=== PATIENT | male | born 1965 | race Caucasian/White ===

== ENCOUNTER → 2020-11-22 11:01 | Outpatient (CLI) | payer BC, SELFPAY ==
[2020-11-23 10:31] LABS: Basophils # 0.1 K/mm3 (0-0.2); Basophils % 0.9 % (0.1-2.0); Eosinophils # 0.2 K/mm3 (0.0-0.4); Eosinophils % 2.8 % (0.1-12.0); Hematocrit 46.7 % (42.0-52.0); Hemoglobin 15.3 g/dL (14.1-18.0); Lymphocytes # 2.3 K/mm3 (0.7-4.5); Lymphocytes % 29.9 % (10-50); Mean Corpuscular HGB Conc 32.8 g/dL (31.8-35.4); Mean Corpuscular Hemoglobin 29.7 pg (27.0-31.2); Mean Corpuscular Volume 90.6 fl (80-94); Mean Platelet Volume 8.7 fl (7.4-10.4); Monocytes # 0.6 K/mm3 (0.1-1.0); Monocytes % 7.2 % (1.7-9.3); Neutrophils # 4.6 K/mm3 (1.8-7.8); Neutrophils % 59.2 % (37.0-80.0); Platelet Count 188 K/mm3 (142-424); Red Blood Count 5.16 M/mm3 (4.60-6.20); White Blood Count 7.8 K/mm3 (4.8-10.8)
[2020-11-23 11:01] LABS: Alanine Aminotransferase 36 U/L (12-78); Albumin Level 4.7 g/dl (3.5-5.0); Albumin/Globulin Ratio 1.7 (1.1-1.8); Alkaline Phosphatase 74 U/L (38-126); Anion Gap 13.5 mEq/L (5-15); Aspartate Amino Transferase 38 U/L (17-59); Bilirubin,Total 1.7 mg/dl (0.2-1.3); Blood Urea Nitrogen 19 mg/dl (9-20); Calcium 9.7 mg/dl (8.4-10.2); Carbon Dioxide 28 mmol/L (22.0-30.0); Chloride 102 mmol/L (98-107); Chol/HDL Ratio 3.2 (1-3.5); Cholesterol 153 mg/dl (140-200); Estimated Glomerular Filt Rate 88 ml/min (>60); GFR (African American) 107 ML/MIN (>60); Globulin 2.8 g/dL (1.3-3.2); Glucose 109 mg/dl (74-100); HDL Cholesterol 48 mg/dl (40-60); Potassium 4.5 mmoL/L (3.5-5.1); Sodium 139 mmol/L (136-145); Total Protein,Serum 7.5 g/dl (6.3-8.2); Triglycerides 66 mg/dl (30-150); VLDL Cholesterol 13 mg/dL (0-40)
[2020-11-23 11:18] LABS: Direct LDL Cholesterol 85.87 mg/dL (100-129)
[2020-11-23 11:32] LABS: Prostate Specific Ag Screen 0.5 ng/ml (0.0-4.0)
== END ==
PROVIDERS: Visit Provider Internal Medicine Adolescent Medicine
DX: I69.398 Other sequelae of cerebral infarction (principal); N40.0 Benign prostatic hyperplasia without lower urinary tract symptoms
CPT/HCPCS: 80053; 80061; 85025; G0103

== ENCOUNTER 2025-05-10 16:38 | Outpatient (CLI) | payer BC, SELFPAY ==
--- OUTSIDE RECORDS SUMMARY | 2025-03-24 08:15 | XMS_ITS ---
Author Organization [facility] PE D COLBY Address [address] [place] [address] Care Team Providers Care Middleware Consultant Name Role Phone Nasir Bryan Primary Care Provider [phone] Torie Martell [phone] Allergies No Known Allergies REASON FOR VISIT cut left pointer finger Medications Medication SIG (Take, Route, Frequency, Duration) Notes Start Date End Date Status Atorvastatin Calcium 40 MG Take 1 tablet by mouth once daily; Duration: 90 Active Triamcinolone Acetonide 0.5 % 1 application Externally Twice a day; Duration: 10 days 03/09/2025 Active Lisinopril 20 MG Take 1 tablet by mouth once daily; Duration: 90 Active Ammonium Lactate 12 % 1 christa applied topically 2 times a day 09/03/2024 Active Xigduo XR 10-1000 MG 1 tab(s) orally once a day (in the morning); Duration: 90 days 12/24/2024 Active Carvedilol 25 MG 1 tab(s) orally 2 times a day; Duration: 90 days Active TEST STRIPS AND LANCETS NA FOR TWICE A DAY FSBS TESTING NA TWICE DAILY; Duration: 30 DAYS *Please review for potential replacement for e-prescription and drug interaction check* Active Aspirin 81 MG 1 tab(s) chewed once a day; Duration: 90 days Active GLUCOMETER NA USE FOR TWICE A DAY FSBS TESTING NA TWICE DAILY; Duration: 30 DAYS DX: E11.9 *Please review for potential replacement for e-prescription and drug interaction check* Active Melatonin 10 MG 2 tab(s) orally once (at bedtime) Active Cephalexin 500 MG 1 capsule Orally 3 times a day; Duration: 5 days 03/24/2025 Active Fish Oil 1000 MG 1 capsule Orally Three times a day Active Vitamin D (Cholecalciferol) 50 MCG (1999) 1 capsule Orally Once a day Active Vital Signs Temperature 98.8 degrees Fahrenheit 03/24/20 25 Blood pressure systolic 112 mm Hg 03/24/20 25 Blood pressure diastolic 88 mm Hg 025 Heart Rate 68 /min 03/24/2025 Height 6 ft 2 in in 03/24/2025 Weight 213.4 lbs 03/24/2025 BMI 27.4 kg/m2 03/24/2025 Encounters Encounter Location Date Provider Diagnosis [facility] [address] [address] 03/24/2025 Torie Martell Avulsion of finger, initial encounter S61.209A Assessments Encounter Date Diagnosis (ICD Code) Assessment Notes Treatment Notes Treatment Clinical Notes Section Notes 03/24/2025 Avulsion of finger, initial encounter (ICD-10 - S61.209A) Wound care reviewed, continue pressure dressing over the next 24 to 48 hours until bleeding stops completely. May cleanse with warm soapy water and dry completely. Start prophylactic antibiotics as noted. His tetanus vaccination is up-to-date. Strict return precautions reviewed Plan Of Treatment Medication Medication Name Sig Start Date Stop Date Notes Cephalexin 500 MG 1 capsule Orally 3 t imes a day; Duration: 5 days 03/24/2025 Next Appt Details Follow Up: prn, Reason: Progress Notes * Nick FRY CDOB: [birth year] (59 yo M)Acc No.[id number]:03/24/2025 Progress Notes Patient: Nick BETTS Jacob Provider: RADHA Littlejohn :1965 A ge:59 Y S ex:Male Date:03/24/2025 Address:[address] [place], [place] [id number] Pcp:Nasir Bryan Subjective: * Chief Complaints: * 1 . Cut left pointer finger. * HPI: g en: 59 yr old male presents today with c/o cut on his left index finger. accident was last night when cutting wood with a new miter saw. has continued to ooz some blood but minimal at this point. no LOC during incident. no fevers. * ROS: C ONSTITUTIONAL: no F ever. G ASTROENTEROLOGY: Reviewed, No Symptoms Reported: Y es. * Medical History: H ypertension, Colonoscopy 12/09 with two tubular adenoma polyps. 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 * Medications: T aking Vitamin D (Cholecalciferol) 50 MCG (1999) Capsule 1 capsule Orally Once a day , Taking Fish Oil 1000 MG Capsule 1 capsule Orally Three times a day , Taking Melatonin 10 MG Capsule 2 tab(s) orally once (at bedtime) , Taking Aspirin 81 MG Tablet Chewable 1 tab(s) chewed once a day , Taking GLUCOMETER NA PER INSURANCE COVERAGE USE FOR TWICE A DAY FSBS TESTING NA TWICE DAILY , Notes to Pharmacist: DX: E11.9 *Please review for potential replacement for e-prescription and drug interaction check*, Taking Carvedilol 25 MG Tablet 1 tab(s) orally 2 times a day , Taking TEST STRIPS AND LANCETS NA PER INSURANCE COVERAGE WITH GLUCOMETER FOR TWICE A DAY FSBS TESTING NA TWICE DAILY , Notes to Pharmacist: *Please review for potential replacement for e-prescription and drug interaction check*, Taking Ammonium Lactate 12 % Lotion 1 christa applied topically 2 times a day , Taking Xigduo XR 10-1000 MG Tablet Extended Release 24 Hour 1 tab(s) orally once a day (in the morning) , Taking Triamcinolone Acetonide 0.5 % Ointment 1 application Externally Twice a day , Taking Lisinopril 20 MG Tablet Take 1 tablet by mouth once daily , Taking Atorvastatin Calcium 40 MG Tablet Take 1 tablet by mouth once daily , Medication List reviewed and reconciled with the patient * Allergies: N .K.D.A. Objective: * Vitals: N urse: KJ, Pain: 8, Temp: 98.8, RR: 18, HR: 68, BP: 112/88, Ht: 6 ft 2 in, Wt: 213.4, BMI:27.4. * Examination: G eneral Examination: General P leasant and Cooperative, NAD on RA. left index finger with more of an avulsion type injury of the distal phalanx. scant bleeding. cleansed with NS and pressure dressing re-applied.. Assessment: * Assessment: 1. A vulsion of finger, initial encounter - (Primary) Plan: * Treatment: * Follow Up: p rn * * Sign off status: Completed true * Provider: RADHA Littlejohn Date: 03/24/2025 Generated for Niki galeano/Vinicius/Maliha on: 05/10/2025 04:40 PM EDT History and Physical Notes * Examination Category Sub-Category Detail Notes Category Not es General Examination General Pleasant and Cooperative, NAD on RA. left index finger with more of an avulsion type injury of the distal phalanx. scant bleeding. cleansed with NS and pressure dressing re-applied.
--- OUTSIDE RECORDS SUMMARY | 2025-04-27 05:15 | XMS_ITS ---
Author Organization [facility] PE D COLBY Address [address] [place] [address] Care Team Providers Care Captain/Check Airman Name Role Phone Nasir Bryan Primary Care Provider [phone] REASON FOR VISIT MED CK Encounters Encounter Location Date Provider Diagnosis [facility] [address] [address] 04/27/2025 Nasir Bryan Plan Of Treatment No Information Progress Notes * Nick FRY CDOB: [birth year] (59 yo M)Acc No.[id number]:04/27/2025 Progress Notes Patient: Carie SALTER Nick James Provider: Carie Bryan MD :1965 A ge:59 Y S ex:Male Date:04/27/2025 Address:[id number] Subjective: * Chief Complaints: * 1 . MED CK. * Medical History: Objective: * Vitals: Assessment: Plan: * Treatment: * * Electronic signature of Shaggy Bryan MD FAAP on 05/10/2025 at 04:40 PM EDT Sign off status: Pending * Provider: Carie Bryan MD Date: 04/27/2025 Generated for Printi ng/Faxing/eTransmitting on: 05/10/2025 04:40 PM EDT
--- NOTE | 2025-05-10 | XR_ITS ---
PROCEDURE INFORMATION: Exam: XR Chest Exam date and time: 05/10/2025 4:46 PM Age: 59 years old Clinical indication: Injury or trauma; Blunt trauma (contusions or hematomas); Injury details: Fall pain to R lateral ribs; Prior surgery; Surgery date: 6+ months; Surgery type: 2019 implant in chest for stroke/pfo TECHNIQUE: Imaging protocol: Radiologic exam of the chest. Views: 2 views. COMPARISON: CR XR RIBS RT 2V 05/10/2025 4:46 PM FINDINGS: Lungs: Unremarkable. No consolidation. Pleural spaces: Unremarkable. No pleural effusion. No pneumothorax. Heart/Mediastinum: Unremarkable. No cardiomegaly. Bones/joints: Unremarkable. IMPRESSION: No acute findings.
--- NOTE | 2025-05-10 | XR_ITS ---
PROCEDURE INFORMATION: Exam: XR Right Ribs Exam date and time: 05/10/2025 4:46 PM Age: 59 years old Clinical indication: Injury or trauma; Rib area; Blunt trauma (contusions or hematomas); Injury details: Fall pain to R lateral rib TECHNIQUE: Imaging protocol: Radiologic exam of the right ribs. Views: 2 views. COMPARISON: CR XR CHEST 2V 05/10/2025 4:46 PM FINDINGS: Bones/joints: Normal. Soft tissues: Normal. IMPRESSION: No acute findings.
--- OUTSIDE RECORDS SUMMARY | 2025-05-10 16:40 | XMS_ITS | Patient Health Record ---
Author Organization [facility] D COLBY Address [address] [place] [address] Care Team Providers Care Pelletizer Operator Name Role Phone Nasir Bryan Primary Care Provider Torie Martell Unavailable [phone] Migration, Provider Unavailable Unavailable Allergies No Known Allergies Results Component Value Reference Range Notes VITAMIN B6 Reviewed date:11/27/2024 03:01:06 PM Interpretation: Performing Lab: Notes/Report: Specimen Comment: Test(s) 300799-Hthyzhl B6 Specimen Comment: was developed and its performance charCNS Response Specimen Comment: determined by [facility]. It has not been maxwell ared or approved Specimen Comment: by the Food and Drug Administration. Deficiency: <3.4 Marginal: 3.4 - 5.1 Adequate: >5.1 Performed at: [facility] [id number] [place] Lab[place]: Ambika Thornton MD, Phone: [phone] VITAMIN B6 38.2 3.4-65.2 ug/L Specimen Comment: Test(s) 239765-Orvcpzs B6 Specimen Comment: was developed and its performance charCNS Response Specimen Comment: determined by [facility]. It has not been maxwell ared or approved Specimen Comment: by the Food and Drug Administration. Deficiency: <3.4 Marginal: 3.4 - 5.1 Adequate: >5.1 Performed at: [facility] [id number] [place] Lab[place]: Ambika Thornton MD, Phone: [phone] SENT TO REFERENCE LAB Note Unless otherwise noted testing performed at: [address] [address] Ravi Sosa MD CLIA: [id number] TESTOSTERONE TOTAL Reviewed date:11/23/2024 09:31:27 AM Interpretation: Performing Lab: Notes/Report: TESTOSTERONE, SERUM 348 264-916 ng/dL Adult male reference interval is based on a population of healthy nonobese males (BMI <30) between 19 and 39 years old. brooke Donald.al. JCEM 2017,102;7392-0989. PMID: [id number]. Performed at: [facility] [id number] [place] Lab[place]: Judd Jesus PhD, Phone: [phone] Note Unless otherwise noted testing performed at: [address] [address] Ravi Sosa MD CLIA: [id number] CBC AUTO W DIFF Reviewed date:11/23/2024 09:31:27 AM Interpretation: Performing Lab: Notes/Report: WBC 6.2 4.5-11.5 10 RBC 5.47 4.25-5.57 10 HGB 16.2 13.5-17.2 g/dL HCT 47.7 42.0-52.0 % MCV 87.2 80-95 fl MCH 29.6 27.0-34.0 pg MCHC 34.0 32.0-36.0 g/dL PLATELET COUNT 187 150-450 10 RDW 13.1 12.3-15.1 % MPV 9.2 7.4-10.4 fl GRANULOCYTE% 64.2 40-75 % LYMPHOCYTE% 24.2 15-57 % MONOCYTE% 8.1 4.0-12.0 % EOSINOPHIL% 2.8 0.0-4.0 % BASOPHIL% 0.5 0.0-1.0 % IMMATURE GRANULOCYTES % 0.2 0.0-0.8 % GRANULOCYTE# 3.96 LYMPHOCYTE# 1.49 MONOCYTE# 0.50 EOSINOPHIL# 0.17 BASOPHIL# 0.03 IMMATURE GRANULOCYTES # 0.01 MANUAL DIFFERENTIAL NO Note Unless otherwise noted testing performed at: [address] [address] Ravi Sosa MD CLIA: [id number] VITAMIN D TOTAL (D2+D3) Reviewed date:11/23/2024 09:31:27 AM Interpretation: Performing Lab: Notes/Report: VITAMIN D25 (D2+D3) 28.6 30-100 ng/mL Note Unless otherwise noted testing performed at: [address] [address] Ravi Sosa MD CLIA: [id number] MAGNESIUM Reviewed date:11/23/2024 09:31:27 AM Interpretation: Performing Lab: Notes/Report: MAGNESIUM 2.0 1.8-2.4 mg/dL Note Unless otherwise noted testing performed at: [address] [address] Ravi Sosa MD CLIA: [id number] LIPID PANEL Reviewed date:11/23/2024 09:31:27 AM Interpretation: Performing Lab: Notes/Report: FASTING ?: YES TRIGLYCERIDE 109 20-200 mg/dL The National Cholesterol Education Program (NCEP) has set the following guidelines for Fasting Triglycerides: NORMAL: <150 mg/dL BORDERLINE HIGH: 150 - 199 mg/dL HIGH: 200 - 499 mg/dL VERY HIGH: > or =500 mg/dL CHOLESTEROL 137 0-200 mg/dL The National Cholesterol Education Program (NCEP) has set the following guidelines for Fasting Cholesterol: DESIRABLE: <200 mg/dL BORDERLINE HIGH: 200 - 239 mg/dL HIGH: > or =240 mg/dL HDL CHOLESTEROL 43 60- mg/dL The National Cholesterol Education Program (NCEP) has set the following guidelines for Fasting HDL Cholesterol: LOW HDL: <40 mg/dL NORMAL: 40 - 60 mg/dL DESIRABLE: >60 mg/dL LDL CALCULATED 72 100- mg/dL The National Cholesterol Education Program (NCEP) has set the following guidelines for Fasting LDL Cholesterol: OPTIMAL: < 100 mg/dL LOW RISK: 100 - 129 mg/dL BORDERLINE HIGH: 130 - 159 mg/dL HIGH: 160 - 189 mg/dL VERY HIGH: > or = 190 mg/dL CHOL/HDL RATIO 3 -5 Note Unless otherwise noted testing performed at: [address] [address] Ravi Sosa MD CLIA: [id number] HEMOGLOBIN A1C Reviewed date:11/23/2024 09:31:27 AM Interpretation: Performing Lab: Notes/Report: GLYCOSYLATED HEMOGLOBIN A1C 5.8 4.5-6.2 % ESTIMATED AVERAGE GLUCOSE 120 82-131 mg/dl Note Unless otherwise noted testing performed at: [address] [address] Ravi Sosa MD CLIA: [id number] CBC (INCLUDES DIFF/PLT) (639 9) Reviewed date:02/24/2025 02:37:12 PM Interpretation: Performing Lab:CB, [facility] [address] [facility] HealthSmibEQ[address] Ferny Angelo Notes/Report: NON-FASTING; NON-FASTING; NON-FASTING; NON-FASTING; NON-FAST WHITE BLOOD CELL COUNT 5.9 3.8-10.8 Thousand/ uL RED BLOOD CELL COUNT 5.20 4.20-5.80 Million/uL HEMOGLOBIN 16.0 13.2-17.1 g/dL HEMATOCRIT 48.8 38.5-50.0 % MCV 93.8 80.0-100.0 fL MCH 30.8 27.0-33.0 pg MCHC 32.8 32.0-36.0 g/dL For adults, a slight decrease in the calculated MCHC value (in the range of 30 to 32 g/dL) is most likely not clinically significant; however, it should be interpreted with caution in correlation with other red cell parameters and the patient's clinical condition. RDW 13.0 11.0-15.0 % PLATELET COUNT 191 140-400 Thousand/uL MPV 9.1 7.5-12.5 fL ABSOLUTE NEUTROPHILS 3605 2525-1530 cells/uL ABSOLUTE LYMPHOCYTES 0106 605-2038 cells/uL ABSOLUTE MONOCYTES 502 200-950 cells/uL ABSOLUTE EOSINOPHILS 201 15-500 cells/uL ABSOLUTE BASOPHILS 47 0-200 cells/uL NEUTROPHILS 61.1 LYMPHOCYTES 26.2 MONOCYTES 8.5 EOSINOPHILS 3.4 BASOPHILS 0.8 COMPREHENSIVE METABOLIC PANE L (95391) Reviewed date:02/24/2025 02:37:12 PM Interpretation: Performing Lab:CB, [facility] Nscx[address] [facility] [place] AlbertOkxiFC[address] Ferny Angelo Notes/Report: NON-FASTING; NON-FASTING; NON-FASTING; NON-FASTING; NON-FAST GLUCOSE 114 65-99 mg/dL Fasting reference interval For someone without known diabetes, a glucose value between 100 and 125 mg/dL is consistent with prediabetes and should be confirmed with a follow-up test. UREA NITROGEN (BUN) 22 7-25 mg/dL CREATININE 0.89 0.70-1.30 mg/dL EGFR 100 > OR = 60 mL/min/1.73m2 BUN/CREATININE RATIO SEE NOTE: 6-22 (calc) Not Reported: BUN and Creatinine are within reference range. SODIUM 140 135-146 mmol/L POTASSIUM 4.8 3.5-5.3 mmol/L CHLORIDE 103 98-110 mmol/L CARBON DIOXIDE 26 20-32 mmol/L CALCIUM 9.6 8.6-10.3 mg/dL PROTEIN, TOTAL 7.2 6.1-8.1 g/dL ALBUMIN 4.8 3.6-5.1 g/dL GLOBULIN 2.4 1.9-3.7 g/dL (calc) ALBUMIN/GLOBULIN RATIO 2.0 1.0-2.5 (calc) BILIRUBIN, TOTAL 1.6 0.2-1.2 mg/dL ALKALINE PHOSPHATASE 70 35-144 U/L AST 28 10-35 U/L ALT 26 9-46 U/L PROLACTIN Reviewed date:11/23/2024 09:31:27 AM Interpretation: Performing Lab: Notes/Report: PROLACTIN 6.5 3.6-25.2 ng/mL Performed at: - [facility] [address] [id number] [place] Lab[place]: Judd Jesus PhD, Phone: [phone] SENT TO REFERENCE LAB Note Unless otherwise noted testing performed at: [address] [address] Ravi Sosa MD CLIA: [id number] CORTISOL TOTAL Reviewed date:11/23/2024 09:31:26 AM Interpretation: Performing Lab: Notes/Report: CORTISOL 19.7 6.2-19.4 ug/dL Please Note: The reference interval and flagging for this test is for an AM collection. If this is a PM collection please use: Cortisol PM: 2.3-11.9 Performed at: [facility] [id number] [place] Lab[place]: Judd Jesus PhD, Phone: [phone] SENT TO REFERENCE LAB Note Unless otherwise noted testing performed at: [address] [address] Ravi Sosa MD CLIA: [id number] VITAMIN B12 & FOLATE Reviewed date:11/23/2024 09:31:27 AM Interpretation: Performing Lab: Notes/Report: VITAMIN B12 484 193-986 pg/mL FOLATE (FOLIC ACID), SERUM 9.0 8.6-58.9 ng/mL Note Unless otherwise noted testing performed at: [address] [address] Ravi Sosa MD CLIA: [id number] COMP METABOLIC PANEL Reviewed date:11/23/2024 09:31:27 AM Interpretation: Performing Lab: Notes/Report: SODIUM 139 136-145 mmol/L POTASSIUM 4.5 3.5-5.1 mmol/L CHLORIDE 103 98-107 mmol/L CARBON DIOXIDE 29 21-32 mmol/L ANION GAP 7.0 GLUCOSE 154 70-110 mg/dL BLOOD UREA NITROGEN 26 7-18 mg/dL CREATININE 1.2 0.8-1.3 mg/dL BUN/CREATININE RATIO 21.7 9-21 ESTIMATED GLOM FILTRATION RATE 71 >60- mL/min GFR LIMITATION: The eGFR equation CKD-EPI 2020 is not applicable for pediatric patients or greater than 90 years of age. The following conditions may alter the GFR result: extremes in body size, malnutrition or obesity, skeletal muscle disease, paraplegia or quadriplegia, vegetarian diet or rapidly changing kiney function. TOTAL PROTEIN 7.5 6.4-8.2 g/dL ALBUMIN 4.2 3.4-5.0 g/dL CALCIUM 9.1 8.5-10.1 mg/dL CORRECTED CALCIUM 8.9 8.5-10.1 mg/dL BILIRUBIN TOTAL 1.5 0.4-1.5 mg/dL AST (SGOT) 26 15-37 U/L ALT (SGPT) 40 12-78 U/L ALK PHOSPHATASE 77 50-170 U/L Note Unless otherwise noted testing performed at: [place] [address] Ravi Sosa MD CLIA: [id number] HEMOGLOBIN A1c (496) Reviewed date:02/24/2025 02:37:12 PM Interpretation: Performing Lab:[facility] [address], [employer] DevelopmentRqvoAX[address] Ferny Angelo Notes/Report: NON-FASTING; NON-FASTING; NON-FASTING; NON-FASTING; NON-FAST HEMOGLOBIN A1c 6.0 <5.7 % For someone without known diabetes, a hemoglobin A1c value between 5.7% and 6.4% is consistent with prediabetes and should be confirmed with a follow-up test. For someone with known diabetes, a value <7% indicates that their diabetes is well controlled. A1c targets should be individualized based on duration of diabetes, age, comorbid conditions, and other considerations. This assay result is consistent with an increased risk of diabetes. Currently, no consensus exists regarding use of hemoglobin A1c for diagnosis of diabetes for children. PROTHROMBIN TIME-INR (8847) Reviewed date:02/24/2025 02:37:12 PM Interpretation: Performing Lab:[facility] [address] Jennifer, [employer] [id number] Ferny Angelo Notes/Report: NON-FASTING; NON-FASTING; NON-FASTING; NON-FASTING; NON-FAST INR 1.0 Reference Range 0.9-1.1 Moderate-intensity Warfarin Therapy 2.0-3.0 Higher-intensity Warfarin Therapy 3.0-4.0 PT 11.4 9.0-11.5 sec For additional information, please refer to http://education.41st Parameter/faq/HMU754 (This link is being provided for informational/ educational purposes only.) PHOSPHATE ( PHOSPHORUS) (7 18) Reviewed date:02/24/2025 02:37:12 PM Interpretation: Performing Lab:[facility] [address] [facility], PolisofiaRqcySA[address] Ferny Angelo Notes/Report: NON-FASTING; NON-FASTING; NON-FASTING; NON-FASTING; NON-FAST PHOSPHATE ( PHOSPHORUS) 4.3 2.5-4.5 mg/dL MAGNESIUM (622) Reviewed date:02/24/2025 02:37:12 PM Interpretation: Performing Lab:CB, [facility] [address], [place] AlbertXidqEK[address] Ferny Angelo Notes/Report: NON-FASTING; NON-FASTING; NON-FASTING; NON-FASTING; NON-FAST MAGNESIUM 2.3 1.5-2.5 mg/dL Medications Medication SIG (Take, Route, Frequency, Duration) Notes Start Date End Date Status Melatonin 10 MG 2 tab(s) orally once (at bedtime) Active Fish Oil 1000 MG 1 capsule Orally Three times a day Active GLUCOMETER NA USE FOR TWICE A DAY FSBS TESTING NA TWICE DAILY; Duration: 30 DAYS DX: E11.9 *Please review for potential replacement for e-prescription and drug interaction check* Active Aspirin 81 MG 1 tab(s) chewed once a day; Duration: 90 days Active Triamcinolone Acetonide 0.5 % 1 application Externally Twice a day; Duration: 10 days 03/09/2025 Active Xigduo XR 10-1000 MG 1 tab(s) orally once a day (in the morning); Duration: 90 days 12/24/2024 Active Vitamin D (Cholecalciferol) 50 MCG (2000 UT) 1 capsule Orally Once a day Active Atorvastatin Calcium 40 MG Take 1 tablet by mouth once daily; Duration: 90 Active Celecoxib 200 MG 1 capsule as needed Orally twice a day; Duration: 30 days 05/10/2025 Active Lisinopril 20 MG Take 1 tablet by mouth once daily; Duration: 90 Active Carvedilol 25 MG 1 tab(s) orally 2 times a day; Duration: 90 days Active Ammonium Lactate 12 % 1 christa applied topically 2 times a day 09/03/2024 Active TEST STRIPS AND LANCETS NA FOR TWICE A DAY FSBS TESTING NA TWICE DAILY; Duration: 30 DAYS *Please review for potential replacement for e-prescription and drug interaction check* Active Immunizations Vaccine Route Administration Date Status Comme nts Boostrix IM Intramuscular 11/22/2020 Administered Flublok IM Intramuscular 06/07/2020 Administered Flublok IM Intramuscular 06/18/2024 Administered FLUZONE 6MO - OLDER IM Intramuscular 08/13/2019 Administer ed FLUZONE 6MO - OLDER IM Intramuscular 08/06/2023 Administer ed Pneumovax 23 IM Intramuscular 05/05/2019 Administered Social History Tobacco Use: Social History Observation Description Date Details (start date - stop date) Never Smoker NA - NA Smoking: Question Answer Notes Are you a: nonsmoker Section Notes: hx chewing tobacco hx chewing tobacco hx chewing tobacco hx chewing tobacco hx chewing tobacco hx chewing tobacco hx chewing tobacco hx chewing tobacco hx chewing tobacco hx chewing tobacco hx chewing tobacco hx chewing tobacco hx chewing tobacco hx chewing tobacco hx chewing tobacco hx chewing tobacco hx chewing tobacco hx chewing tobacco hx chewing tobacco hx chewing tobacco hx chewing tobacco hx chewing tobacco hx chewing tobacco Problems Problem Type SNOMED Code ICD Code Onset Dates Problem Status W/U Status Risk Notes Problem Type 2 diabetes mellitus with other specified complication (E11.69) Active confirmed Problem Insomnia (199642289) Other insomnia (G47.09) Active confirmed Problem Chronic pain (28138965) Other chronic pain (G89.29) Active confirmed Problem Sequelae of cerebral infarction (734316196) Other sequelae of cerebral infarction (I69.398) Active confirmed Problem Dysuria (88677806) Dysuria (R30.0) Active confi rmed Problem Seizure disorder (366346492) Seizure disorder (G40.909) Active confirmed Problem Anxiety (41648625) Anxiety (F41.9) Active confi rmed Problem Androgen deficiency (03487788) Androgen deficiency (E29.1) Active confirmed Problem Obesity (719199439) Obesity, unspecified (E66.9) Active confirmed Problem Palpitations (19884337) Palpitation (R00.2) Active confirmed Problem Erectile dysfunction (disorder) (948901503) Erectile dysfunction, unspecified erectile dysfunction type (N52.9) Active confirmed Problem Migraine with aura (8424288) Migraine with aura and without status migrainosus, not intractable (G43.109) Active confirmed Problem Patent foramen ovale (230308185) Patent foramen ovale (Q21.1) Active confirmed Problem Essential hypertension (44344779) Essential hypertension with goal blood pressure less than 140\/90 (I10) Active confirmed Problem Type II diabetes mellitus without complication (720536497) Type 2 diabetes mellitus without complication, without long-term current use of insulin (E11.9) Active confirmed Problem Benign prostatic hypertrophy without outflow obstruction (588474696) Benign prostatic hyperplasia without lower urinary tract symptoms (N40.0) Active confirmed Problem Lower urinary tract symptoms due to benign prostatic hypertrophy (82711079166675) Benign prostatic hyperplasia with lower urinary tract symptoms (N40.1) Active confirmed Problem Seasonal allergic rhinitis (817119947) Acute seasonal allergic rhinitis (J30.2) Active confirmed Problem Peyronie's disease (4223435) Peyronie's disease (N48.6) Active confirmed Problem Type II diabetes mellitus without complication (297435701) New onset type 2 diabetes mellitus (E11.9) Active confirmed Problem 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, 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) Active confirmed Vital Signs Heart Rate 72 /min 05/10/2025 Temperature 98.0 degrees Fahrenheit 05/10/2025 Blood pressure diastolic 94 mm Hg 05/10/2025 Height 6 ft 2 in in 05/10/2025 Blood pressure systolic 138 mm Hg 05/10/2025 Weight 218 lbs 05/10/2025 BMI 27.99 kg/m2 05/10/2025 Encounters Encounter Location Date Provider Diagnosis [facility] [address] [facility] [address] [place] [address] 12/26/2024 Provider Migration Type 2 diabetes mellitus with other specified complication E11.69 [facility] [address] [facility] [address] [place] [address] 05/10/2025 Nasir Bryan Accidental fall, initial encounter W19.XXXA and Chest wall pain R07.89 [facility] [place] [address] [address] 06/18/2024 Nasir Bryan Eczema craquele L30. 8 and Immunization(s) administered Z23 [facility] [place] [address] [address] 11/19/2024 Nasir Bryan Type 2 diabetes mellitus without complication, without long-term current use of insulin E11.9 ; Other malaise R53.81 ; Other fatigue R53.83 ; Androgen deficiency E29.1 and Routine medical exam Z00.00 [facility] [place] [address] [address] 12/24/2024 Nasir Bryan Type 2 diabetes mellitus with other specified complication E11.69 ; Obesity, unspecified E66.9 ; New onset type 2 diabetes mellitus E11.9 ; Cognitive impairment R41.89 and Family history of presenile dementia Z81.8 [facility] [place] [address] [address] 02/23/2025 Nasir Bryan Type 2 diabetes mellitus without complication, without long-term current use of insulin E11.9 ; Other malaise R53.81 ; Other fatigue R53.83 and Ecchymosis R58 [facility] [place] [address] [address] 03/24/2025 Torie Martell Avulsion of finger, initial encounter S61.209A [facility] [address] [place] [address] 06/29/2024 Nasir Besson [facility] [address] [address] 08/10/2024 Nasir Besson [facility] [address] [address] 09/03/2024 Nasir Besson [facility] [address] [address] 09/03/2024 Nasir Besson [facility] [address] [address] 03/09/2025 Nasir Bryan Eczema craquele L30. 8 Assessments Encounter Date Diagnosis (ICD Code) Assessment Notes Treatment Notes Treatment Clinical Notes Section Notes 06/18/2024 Eczema craquele (ICD-10 - L30.8) - presents with rash on DIP joints of bilateral hands, cracking skin, some bleeding - at this time suspect eczema, no signs/symptoms of infection, no joint pain/stiffness. 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 Will check multiple labs given his long history of diabetes. Given his history of seizure disorder we will also check some hormonal labs such as prolactin and cortisol to make sure we have not got any neuroendocrine axis problems. Please note I will review all labs personally get back with the patient 11/19/2024 Type 2 diabetes mellitus without complication, without long-term current use of insulin (ICD-10 - E11.9) Patient's concern is why when he eats more sensibly his glucose is higher the next day and lower when he has some more carbs. We discussed nocturnal glucose metabolism and the possibility of Somogyi phenomenon and that his body was still producing insulin and glucagon and this would need to be taken into account. Will do fasting labs today and an A1c and we will regroup and see if we can smooth out his glucose levels 12/24/2024 Type 2 diabetes mellitus with other specified complication (ICD-10 - E11.69) I think benefit would benefit from SGLT2 inhibitor. Will combine this with his metformin to reduce pill burden. Discussed a host of nutritional issues. 12/24/2024 Obesity, unspecified (ICD-10 - E66.9) Discussed using fish oil for joint pains. Discussed stopping several of his medications including his seizure medication. He had 1 isolated seizure. Discussed option fluoxetine. He seems emotionally well-balanced since improving from his stroke and seizure issues. 12/26/2024 Type 2 diabetes mellitus with other specified complication (ICD-10 - E11.69) 02/23/2025 Other malaise (ICD-10 - R53.81) -Has had some subjective weaknes and difficluty w/moving heavy things at work and had mutliple med chnages rececntly- will check CMP, Mg, and Phos 02/23/2025 Type 2 diabetes mellitus without complication, without long-term current use of insulin (ICD-10 - E11.9) -BG well controlled on Xigduo on home reads, due for repeat A1c -Some subjective weakness and possible easy bleeding and bruising since starting med, checking clotting function and encouraging increased fluid intake. -RTC 2-3 months for med check and to observe ongoing symptoms. 03/09/2025 Eczema craquele (ICD-10 - L30.8) 03/24/2025 Avulsion of finger, initial encounter (ICD-10 - S61.209A) Wound care reviewed, continue pressure dressing over the next 24 to 48 hours until bleeding stops completely. May cleanse with warm soapy water and dry completely. Start prophylactic antibiotics as noted. His tetanus vaccination is up-to-date. Strict return precautions reviewed 05/10/2025 Chest wall pain (ICD-10 - R07.89) Imaging studies given his fall and persistent pain. I will review personally. 05/10/2025 Accidental fall, initial encounter (ICD-10 - W19.XXXA) 02/23/2025 Other fatigue (ICD-10 - R53.83) 12/24/2024 New onset type 2 diabetes mellitus (ICD-10 - E11.9) 11/19/2024 Other fatigue (ICD-10 - R53.83) 06/18/2024 Immunization(s) administered (ICD-10 - Z23) - flu shot administered today 12/24/2024 Cognitive impairment (ICD-10 - R41.89) Will stop antiseizure medication, will stop fluoxetine. If weight loss occurs with SGLT2 and his blood pressure remains excellent we will consider weaning off beta-windy. 02/23/2025 Ecchymosis (ICD-10 - R58) 11/19/2024 Androgen deficiency (ICD-10 - E29.1) 12/24/2024 Family history of presenile dementia (ICD-10 - Z81.8) Patient is very concerned about memory loss. Had a long discussion about memory treatment options. His mother in her early 60s of presenile dementia. We will involve neurology and make a referral for memory evaluation 11/19/2024 Routine medical exam (ICD-10 - Z00.00) Patient is up-to-date with colonoscopy. Non-smoker. Has not used alcohol for many years. Supportive home life. Depression screening negative. No cognitive impairment noted. Plan Of Treatment Pending Test Test Name Order Date N-CBC 09/09/2006 MRI : Lumbosacral Spine 01/23/2010 CT Scan : Abdomen, with contrast 006 N-TSH (Thyroid Stimulating Hormone) 08/23 Rapid Strep 12/24/2006 N-CMP 09/09/2006 Cardiac GXT 09/30/2013 EKG : In House 02/03/2007 X ray : Rib Series 05/10/2025 N-Testosterone, Free 12/24/2012 H-CBC with AUTO DIFF 02/16/2015 H-VITAMIN B12 02/16/2015 H-CMP 02/16/2015 H-LIPID PANEL 02/16/2015 H-TSH 02/16/2015 H-VIT D, 25-HYDROXY 02/16/2015 C-TESTOSTERONE 06/07/2020 X ray : Chest PA and Lateral 05/10/2025 BASIC METABOLIC PANEL (48910) 12/07/2022 HEMOGLOBIN A1c (496) 12/07/2022 FECAL LEUKOCYTE STAIN (3930) 11/25/2023 Future Test Test Name Order Date COMPREHENSIVE METABOLIC PANEL (58698) HEMOGLOBIN A1c (496) 03/04/2023 Insurance Providers Payer Name Payer Address Payer Phone Subscriber Number Group Number Insured Name Patient Relationship to Insured Coverage Start Date Coverage End Date [facility] [address] [place] [address] [id number] Nick Evans Self - patient is the insured Medications Administered Medication Instructions Date of Administration Dosage Notes Kenalog 40mg 01/17/2017 40 mg Kenalog 40mg 09/06/2017 40 mg Triamcinolone Acetonide 40mg Injection 02/28/2018 1 mL Triamcinolone Acetonide 40mg Injection 08/13/2019 1 mL Triamcinolone Acetonide 40mg Injection 10/27/2019 1 mL Kenalog 10/25/2016 1 mL Medical (General) History Medical History History ICD Code hypertension Colonoscopy 12/09 with two tu bular adenoma polyps. 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
--- OUTSIDE RECORDS SUMMARY | 2025-05-10 16:40 | XMS_ITS | Clinical Summary ---
Author Organization [facility] Address [address] [place] [address] Care Team Providers Care Demand Planning Manager Name Role Phone Nasir Bryan MD Primary Care Provider + [phone] Monse Marinelli MD Unavailable [phone] Allergies No known active allergies Medications lisinopril 20 MG tablet Take 1 tablet (20 mg) by mouth 1 (one) time each day. 09/18/2019 Active carvedilol (Coreg) 25 MG tablet Take 1 tablet (25 mg) by mouth 2 (two) times a day. 09/18/2019 Active busPIRone (Buspar) 10 MG tablet Take 1 tablet (10 mg) by mouth 1 (one) time each day. 02/16/2020 Active atorvastatin (Lipitor) 40 MG tablet Take 1 tablet (40 mg) by mouth 1 (one) time each day. 09/18/2019 Active aspirin 81 MG chewable tablet Chew 1 tablet (81 mg) 1 (one) time each day. 12/15/2019 Active lacosamide (Vimpat) 100 MG tablet Take 1 tablet (100 mg) by mouth 1 (one) time each day. 06/19/2020 Active metFORMIN (Glucophage) 500 MG tablet Take 1 tablet (500 mg) by mouth 2 (two) times a day. 09/02/2023 Active Active Problems Problem Noted Date Diagnosed Date Mild neurocognitive disorder 05/17/2023 Status post percutaneous patent foramen ovale cl osure 10/10/2021 Overview (10/10/2021): 18 mm Amplatzer Septal Occluder placed on 09/05/[address] Vazquez. S/P atrial septal defect closure 09/05/2021 Cryptogenic stroke 08/10/2021 Overview (08/10/2021): Added automatically from request for surgery [id number] PFO (patent foramen ovale) 08/01/2021 Seizure 02/18/2020 Right hemiparesis 07/16/2019 Overweight 07/16/2019 History of stroke 07/16/2019 Expressive aphasia 07/16/2019 Essential hypertension 07/16/2019 Status post placement of implantable loop record er 07/08/2019 Overview (10/10/2021): [employer] Family History Medical History Relation Name Comments Anxiety disorder Brother 1 Diabetes Brother 2 Conversions - Other Father deafness or hearing loss Dementia Mother Nick Relation Name Status Comments Brother 1 Brother 2 Father Mother Nick Social History Tobacco Use Types Packs/Day Years Used Date Smoking Tobacco: Never Smokeless Tobacco: Former Snuff Tobacco Cessation:Counseling Given: Not Answered Alcohol Use Standard Drinks/Week Comments Not Currently 0 (1 standard drink = 0.6 oz pur e alcohol) Sex and Gender Information Value Date Recorded Sex Assigned at Male 07/03/2021 5:48 AM EDT Legal Sex Male 7:19 PM EDT Gender Identity Male 07/03/2021 5:48 AM EDT Sexual Orientation Straight 07/03/2021 5: 48 AM EDT Last Filed Vital Signs Vital Sign Reading Time Taken Comments Blood Pressure 130/90 04/07/2024 10:25 AM EDT Pulse 50 04/07/2024 10:25 AM EDT Temperature 36.7 C (98 F) 09/06/2021 7:45 AM EST Respiratory Rate 18 09/17/2023 9:06 AM EST Oxygen Saturation 98% 04/07/2024 10:25 AM EDT Inhaled Oxygen Concentration - - Weight 106 kg (233 lb) 04/07/2024 10:25 AM EDT Height 185.4 cm (6' 1 ) 04/07/2024 10:25 AM EDT Body Mass Index 30.74 04/07/2024 10:25 AM EDT Plan of Treatment Upcoming Encounters Date Type Department Care Team (Late st Contact Info) Description 07/06/2025 10:30 AM EDT Office Visit [place] [facility] [address] [place] [address] Monse Marinelli MD [address] [place] [address] Health Maintenance Due Date Last Done Comments [facility]-Depression Screening 1967 [facility]-HIV Screening 1967 [facility]-Infant/Child/Adol SDOH Screenings 1967 [facility]- SDOH Screenings 1985 [facility]-Adult SDOH Screenings 1985 [facility]-Hepatitis B Vaccines (1 of 3 - 19+ 3-dose series) 1986 CT Colonography 2012 Colonoscopy 2012 FIT-DNA 2012 FIT 2012 FOBT 2012 Sigmoidoscopy 2012 [facility]-Colorectal Cancer Screening 2012 [facility]-Zoster Vaccines (1 of 2) 2017 [facility]-Pneumococcal Vaccine: 50+ Years (2 of 2 - PCV) 05/05/2020 05/05/2019 [id number] Vaccine (2 - season) 2024 08/01/2021 [facility]-Influenza Vaccine (#1) 05/24/202506/18, 08/06/2023, 06/07/2020, Additional history exists [facility]-DTaP,Tdap,and Td Vaccines (2 - Td or Tdap) 11/22/2030 11/22/2020 [facility]-Hepatitis C Screening Completed 02/03/2020 [facility]-Obesity Intervention Completed 024, 09/17/2023, 10/11/2022 HPV Vaccines Aged Out No longer eligi ble based on patient's age to complete this topic [facility]-HIB Vaccines Aged Out No longer e ligible based on patient's age to complete this topic [facility]-Hepatitis A Vaccines Aged Out No longer eligible based on patient's age to complete this topic [facility]-IPV Vaccines Aged Out No longer e ligible based on patient's age to complete this topic [facility]-Rotavirus Vaccines Aged Out No lo nger eligible based on patient's age to complete this topic Medical Devices Implanted Type Area Distributor Advertising Material Device Identifier Shelf Expiration Date Model / Serial / Lot Occluder Cribiform 18mm - [id number] Implanted:Qty: 1 on 09/05/2021 by Blaze Vazquez MD at [id number] 04/22/2025 [id number] Procedures Procedure Name Priority Date/Time Associated Diagnosis Comments HEPATITIS C ANTIBODY - ED W/REFLEX TO HCV QUANT PCR Routine 02/03/2020 9:43 PM EDT from Last 3 Months or Most Recently Relevant to Health Maintenance Results * [place] Hepatitis C Antibody (02/03/2020 9:43 PM EDT) [place] Hepatitis C Ab NEGATIVE Reference Range: Negative SUNQUEST 02/03/2020 9:43 PM EDT 02/03/2020 9:58 PM EDT Hyun Alaniz MD LAB BLOOD ORDERABLES Rosenda terry Result SUNQUEST from Last 3 Months or Most Recently Relevant to Health Maintenance Insurance [employer] Advance Directives * Full Code (Latest Code Status on File) Date Activated Date Inactivated Comments 09/05/2021 7:11 PM 09/06/2021 5:01 PM Question Answer Comments Patient has decision-making capacity? Yes Care Teams Demand Planning Manager Relationship Specialty Start Date End Date Nasir Bryan MD [address] [place] [address] PCP - General 02/03/21 Monse Marinelli MD [address] [place] [address] Service Attending Neurology 03/08/22
== END 2025-05-10 23:59 | disposition home or self-care (01) ==
LOC: RAD 16:38
PROVIDERS: PCP Internal Medicine Adolescent Medicine; Visit Provider Internal Medicine Adolescent Medicine
DX: R07.89 Other chest pain (principal); W19.XXXA Unspecified fall, initial encounter
CPT/HCPCS: 71046; 71100